=== PATIENT | female | born 1975 | race Two or more races ===

== ENCOUNTER 2017-08-16 16:10 | Outpatient (CLI) | payer OTHER ==
[~2017-08-16 16:10] MED LIST: BENADRYL50 MG PO; MEDROLPACK PO; NABUMETONE750 MG PO; NON; TRAMADOL HCL50 MG PO
== END 2017-08-16 16:12 | disposition home or self-care (01) ==
LOC: LAB 16:10
DX: N39.0 Urinary tract infection, site not specified (principal); R82.79 Other abnormal findings on microbiological examination of urine

== ENCOUNTER 2018-03-08 10:12 | Outpatient (CLI) | payer OTHER | END 2018-03-08 10:22 | disposition home or self-care (01) | LOC: LAB 10:12 | DX: R53.1 Weakness (principal); Z00.00 Encounter for general adult medical examination without abnormal findings ==

== ENCOUNTER → 2018-04-14 09:23 | Outpatient (CLI) | payer OTHER | END | disposition home or self-care (01) | LOC: LAB 09:23 | DX: M06.09 Rheumatoid arthritis without rheumatoid factor, multiple sites (principal); R76.0 Raised antibody titer; M54.2 Cervicalgia; M54.5 Low back pain; M54.6 Pain in thoracic spine; M15.8 Other polyosteoarthritis ==

== ENCOUNTER 2018-05-05 11:07 | Outpatient (CLI) | payer OTHER | END 2018-05-05 11:40 | disposition home or self-care (01) | LOC: LAB 11:07 | DX: R76.0 Raised antibody titer (principal) ==

== ENCOUNTER 2018-06-13 10:50 | Outpatient (CLI) | payer OTHER | END 2018-06-13 10:59 | disposition home or self-care (01) | LOC: LAB 10:50 | DX: J11.1 Influenza due to unidentified influenza virus with other respiratory manifestations (principal); J20.0 Acute bronchitis due to Mycoplasma pneumoniae ==

== ENCOUNTER 2018-09-29 10:14 | Outpatient (CLI) | payer OTHER | END 2018-09-29 10:28 | disposition home or self-care (01) | LOC: LAB 10:14 | DX: E78.49 Other hyperlipidemia (principal); R42 Dizziness and giddiness; Z00.00 Encounter for general adult medical examination without abnormal findings ==

== ENCOUNTER → 2018-10-11 | Outpatient (CLI) | payer OTHER | END | disposition home or self-care (01) | LOC: MAMO-SONO 14:15 | DX: N60.11 Diffuse cystic mastopathy of right breast (principal); N60.12 Diffuse cystic mastopathy of left breast; Z12.31 Encounter for screening mammogram for malignant neoplasm of breast ==

== ENCOUNTER → 2019-01-23 | Outpatient (CLI) | payer OTHER | END | disposition home or self-care (01) | LOC: RAD 16:40 | DX: J06.9 Acute upper respiratory infection, unspecified (principal) ==

== ENCOUNTER 2019-01-25 06:34 | Outpatient (CLI) | payer OTHER | END 2019-01-25 06:42 | disposition home or self-care (01) | LOC: LAB 06:34 | DX: E78.49 Other hyperlipidemia (principal); Z00.00 Encounter for general adult medical examination without abnormal findings; E55.9 Vitamin D deficiency, unspecified; R51 Headache; J06.9 Acute upper respiratory infection, unspecified ==

== ENCOUNTER → 2019-03-01 10:10 | Outpatient (CLI) | payer OTHER | END | disposition home or self-care (01) | LOC: LAB 10:10 | DX: M32.19 Other organ or system involvement in systemic lupus erythematosus (principal); E03.8 Other specified hypothyroidism; M33.12 Other dermatomyositis with myopathy; M81.0 Age-related osteoporosis without current pathological fracture; I10 Essential (primary) hypertension; M06.9 Rheumatoid arthritis, unspecified ==

== ENCOUNTER → 2019-04-02 | Outpatient (CLI) | payer OTHER | END | disposition home or self-care (01) | LOC: LAB 09:42 | DX: M06.89 Other specified rheumatoid arthritis, multiple sites (principal); M32.19 Other organ or system involvement in systemic lupus erythematosus; D68.61 Antiphospholipid syndrome; M35.00 Sjogren syndrome, unspecified ==

== ENCOUNTER 2019-04-22 15:31 | Outpatient (CLI) | payer OTHER | END 2019-04-22 16:39 | disposition home or self-care (01) | LOC: LAB 15:31 | DX: J11.1 Influenza due to unidentified influenza virus with other respiratory manifestations (principal) ==

== ENCOUNTER 2019-10-29 14:10 | Outpatient (CLI) | payer OTHER | END 2019-10-29 14:12 | disposition home or self-care (01) | LOC: MAMO-SONO 14:10 | PROVIDERS: ATTEND Surgery | DX: Z12.31 Encounter for screening mammogram for malignant neoplasm of breast (principal); N60.11 Diffuse cystic mastopathy of right breast; N60.12 Diffuse cystic mastopathy of left breast ==

== ENCOUNTER 2020-02-29 08:20 | Outpatient (CLI) | payer OTHER | END 2020-02-29 08:24 | disposition home or self-care (01) | LOC: LAB 08:20 | PROVIDERS: ATTEND Obstetrics & Gynecology | DX: N39.0 Urinary tract infection, site not specified (principal); N95.1 Menopausal and female climacteric states; R89.1 Abnormal level of hormones in specimens from other organs, systems and tissues; E03.8 Other specified hypothyroidism; D64.89 Other specified anemias; E55.9 Vitamin D deficiency, unspecified; E78.49 Other hyperlipidemia; M81.6 Localized osteoporosis [Lequesne] ==

== ENCOUNTER → 2020-09-17 10:50 | Outpatient (CLI) | payer OTHER | END | disposition home or self-care (01) | LOC: LAB 10:50 | PROVIDERS: ATTEND General Practice | DX: Z00.00 Encounter for general adult medical examination without abnormal findings (principal); E78.49 Other hyperlipidemia; R73.09 Other abnormal glucose; E03.8 Other specified hypothyroidism; M54.16 Radiculopathy, lumbar region ==

== ENCOUNTER 2021-06-25 06:22 | Outpatient (CLI) | payer OTHER | END 2021-06-25 06:23 | disposition home or self-care (01) | LOC: LAB 06:22 | PROVIDERS: ATTEND General Practice | DX: G56.00 Carpal tunnel syndrome, unspecified upper limb (principal); M18.0 Bilateral primary osteoarthritis of first carpometacarpal joints; R31.9 Hematuria, unspecified; R78.5 Finding of other psychotropic drug in blood; D64.9 Anemia, unspecified; E11.9 Type 2 diabetes mellitus without complications ==

== ENCOUNTER 2021-07-22 13:35 | Outpatient (CLI) | payer OTHER | END 2021-07-22 13:45 | disposition home or self-care (01) | LOC: MAMO-SONO 13:35 | PROVIDERS: ATTEND General Practice | DX: N64.4 Mastodynia (principal) ==

== ENCOUNTER 2022-04-05 06:10 | Outpatient (CLI) | payer OTHER | END 2022-04-05 06:12 | disposition home or self-care (01) | LOC: LAB 06:10 | PROVIDERS: ATTEND Specialist | DX: J44.9 Chronic obstructive pulmonary disease, unspecified (principal); D51.9 Vitamin B12 deficiency anemia, unspecified; I10 Essential (primary) hypertension; E78.2 Mixed hyperlipidemia; E11.69 Type 2 diabetes mellitus with other specified complication; I11.9 Hypertensive heart disease without heart failure; E03.8 Other specified hypothyroidism; R19.5 Other fecal abnormalities; Z12.11 Encounter for screening for malignant neoplasm of colon; E55.9 Vitamin D deficiency, unspecified; E88.81 Metabolic syndrome and other insulin resistance; E03.9 Hypothyroidism, unspecified; E04.0 Nontoxic diffuse goiter; Z13.0 Encounter for screening for diseases of the blood and blood-forming organs and certain disorders involving the immune mechanism; E66.9 Obesity, unspecified; E78.00 Pure hypercholesterolemia, unspecified; F51.01 Primary insomnia; M19.90 Unspecified osteoarthritis, unspecified site; L68.0 Hirsutism; R89.1 Abnormal level of hormones in specimens from other organs, systems and tissues; N95.1 Menopausal and female climacteric states; R68.82 Decreased libido; E65 Localized adiposity; R94.5 Abnormal results of liver function studies; N39.0 Urinary tract infection, site not specified; N95.9 Unspecified menopausal and perimenopausal disorder; R05.9 Cough, unspecified ==

== ENCOUNTER 2022-05-02 10:50 | Outpatient (CLI) | payer OTHER | END 2022-05-02 10:57 | disposition home or self-care (01) | LOC: MRI 10:50 | PROVIDERS: ATTEND Specialist | DX: R51.9 Headache, unspecified (principal); R41.3 Other amnesia | CPT/HCPCS: 70552 ==

== ENCOUNTER 2022-10-11 08:02 | Outpatient (CLI) | payer OTHER | END 2022-10-11 08:17 | disposition home or self-care (01) | LOC: MAMO-SONO 08:02 | PROVIDERS: ATTEND Surgery | DX: N60.11 Diffuse cystic mastopathy of right breast (principal); N60.12 Diffuse cystic mastopathy of left breast; Z12.31 Encounter for screening mammogram for malignant neoplasm of breast ==

== ENCOUNTER 2023-03-10 02:24 | Emergency (ER) | payer OTHER ==
[~2023-03-10] VITALS: Ht 165.1 cm; Wt 68.0 kg
== END 2023-03-10 08:21 | disposition home or self-care (01) ==
LOC: ER 02:24
DX: R53.81 Other malaise (principal); R53.83 Other fatigue; Z20.822 Contact with and (suspected) exposure to COVID-19

== ENCOUNTER 2024-04-17 07:54 | Outpatient (CLI) | payer OTHER | END 2024-04-17 08:03 | disposition home or self-care (01) | LOC: MAMO-SONO 07:54 | PROVIDERS: ATTEND Surgery | DX: N60.11 Diffuse cystic mastopathy of right breast (principal); N60.12 Diffuse cystic mastopathy of left breast ==